=== PATIENT | male | born 1960 | race Caucasian/White ===

== ENCOUNTER 2016-08-05 09:29 | Emergency (ER) ==
[2016-08-05 09:38] VITALS: BP 173/91
[2016-08-05 09:52] LABS: URINE CULTURE PL NEEDED? NO; URINE SOURCE CLEAN CATCH
[2016-08-05 10:05] LABS: BILIRUBIN URINE NEGATIVE (NEGATIVE); BLOOD URINE NEGATIVE (NEGATIVE); CLARITY CLEAR (CLEAR); COLOR YELLOW; GLUCOSE URINE NEGATIVE (NEGATIVE); LEUKOCYTES URINE TRACE (NEGATIVE); NITRITE URINE NEGATIVE (NEGATIVE); PROTEIN URINE TRACE mg/dL (NEGATIVE); SP GRAVITY URINE 1.015; UROBILINOGEN URINE NORMAL
[2016-08-05 10:06] LABS: URINE EPITHELIAL CELLS <10 /HPF (<10); URINE RBC <10 /HPF (<10); URINE WBC <10 /HPF (<10)
[2016-08-05] MEDS ORDERED: NORCO-10 PO ONE (10:09)
[2016-08-05] MEDS ORDERED: DEPO-MEDROL IM ONE (10:10)
[2016-08-05] MEDS ORDERED: NORFLEX IM ONE (10:10)
--- NOTE | 2016-08-05 10:15 | PROVIDER DOCUMENTATION ---
HPI-General Adult - General Chief Complaint: Back Pain Stated Complaint: BACK PAIN Time Seen by Provider: 08/05/16 09:59 Source: patient Allergies/Adverse Reactions: Patient Allergies Allergy/AdvReac Type Severity Reaction Status Date / Time No Known Allergies Allergy Verified 08/05/16 09:37 Home Medications: Omeprazole [Prilosec] 20 mg PO DAILY 06/17/15 - History of Present Illness -Gen Adult Nature of Presenting Problems: Pt. is 55 yom that presents with c/o low back pain that is going down his left buttock and leg. Pt. reports he has an epidural scheduled for Wednesday and yesterday he twisted wrong and his pain became worse. Pt. denies any injury. Location of Pain/Injury: reports: back. denies: head, face, mouth, neck, chest , upper extremity, hand(s), abdomen, pelvis, genitalia, lower extremity, feet, upper body, lower body, generalized Pain Radiation: reports: no radiation Quality of Pain: reports: aching. denies: burning, cramping, dull, fullness, indigestion, pressure, sharp, stabbing, tearing, throbbing, tightness Severity: reports: moderate. denies: mild Onset/Duration: reports: abrupt, 24 hours ago Timing: reports: still present. denies: improving, gone now, resolved prior to arrival, intermittent, constant, changing over time, getting worse Context/Activities at Onset: reports: light activity. denies: recent emotional stress, recent physical stress, recent trauma history, possible bad food, cold exposure, out of country travel Modifying Factors: improves with: nothing Associated Symptoms: reports: back/neck pain. denies: anxiety, arm pain, chest pain, constipation, cough, diaphoresis, diarrhea, dizziness, EENT symptoms, fatigue, fever/chills, genitourinary problems, headaches, heartburn, joint pain , loss of appetite, malaise, muscle aches, sinus congestion/drainage, nausea, rash, seizure, shortness of breath, sensory/motor loss, pain with inspiration, swelling/mass in abdomen, syncope, vomiting, weakness, trouble walking Similar Symptoms Previously?: Yes Recently seen or treated by another doctor?: No Review of Systems - Adult - REVIEW OF SYSTEMS - ADULT Constitutional: reports: see HPI. denies: chills, fever, fatique Eyes: reports: see HPI. denies: discharge, blurred vision, double vision Ears, Nose, Mouth & Throat: reports: see HPI. denies: ear discharge, ear pain, hearing loss, sinus problem, nose pain, loose teeth, mouth/dental pain, throat pain, throat swelling Cardiovascular: reports: see HPI. denies: chest pain, irregular heart rate, orthopnea, syncope Respiratory: reports: see HPI. denies: chronic cough, cough, dyspnea on exertion, pleurisy, shortness of breath, wheezing Gastrointestinal: reports: see HPI. denies: abdominal pain, hematemesis, difficulty swallowing, frequent heartburn, nausea Genitourinary: reports: see HPI. denies: dysuria, discharge, frequent UTI's, hematuria, hesitency, urgency Musculoskeletal: reports: see HPI, back pain, muscle aches. denies: bone pain, joint pain, joint swelling, neck pain Integumentary: reports: see HPI. denies: hives, mole changes, rash, skin thickening Neurological: reports: see HPI. denies: ataxia, dizziness/vertigo, numbness, paresthesia, seizure Psychiatric: reports: see HPI. denies: anxiety, depression, panic attacks, suicidal thoughts Endocrine: reports: see HPI. denies: excessive sweating, heat intolerance, increased hunger Past History - Adult - PAST MEDICAL HISTORY-ADULT Review of Records: reports: Old Records Reviewed, Nursing Assessment Review, Medications Reviewed, Social history reviewed & non-contributory. Gastrointestinal: reports: other (reflux) Physical Exam-General - PHYSICAL EXAM-ADULT Initial Vital Signs Reviewed: Yes - CONSTITUTIONAL General Appearance: alert, moderate distress, obese. negative: thin, anxious, lethargic, slow to respond, obtunded, combative - EYES Eyes: PERRL/EOMI, pink conjunctivae. negative: conjuctival exudate, photophobia , subconjunctival hemorrhage - HEAD, EARS, NOSE, MOUTH & THROAT HENMT: normocephalic/atraumatic, moist mucous membranes. negative: angioedema, frontal tenderness, maxillary tenderness - NECK Neck: non-tender, full range of motion, supple, normal inspection. negative: lymphadenopathy, trachial deviation, thyromegaly - RESPIRATORY Respiratory: lungs clear, normal breath sounds. negative: crackles, rales, rhonchi, stridor, wheezing - CARDIOVASCULAR Cardiovascular: normal peripheral pulses, regular rate, rhythm, no edema, no JVD , no murmur. negative: extra beats, friction rub, irregularly irregular - CHEST (BREASTS) Chest/Breast: deferred - GASTROINTESTINAL (ABDOMEN) Abdominal Exam: normal bowel sounds, non tender, soft. negative: distended, guarding, rigid, rebound, tenderness, hernia, mass - GENITOURINARY Male Genitalia: deferred Rectal Exam: deferred Hemoccult Exam: deferred - LYMPHATIC Lymphatic: no adenopathy. negative: axilla node tender, cervical node tenderness - MUSCULOSKELETAL Back Exam: normal inspection, no CVA tenderness, no vertebral tenderness, decreased range of motion, muscle spasm. negative: ecchymosis, swelling, vertebral tenderness Extremity: normal range of motion, non-tender, normal gait, normal inspection. negative: deformity, erythema, inflammation, swelling, tenderness Peripheral Pulses: radial (R): 2+, radial (L): 2+ - SKIN Integumentary: normal color, normal turgor, warm/dry. negative: cyanosis, diaphoresis, ecchymosis, erythema, jaundice, mottled, pallor, petechiae, purpura , rash, swelling, tenderness - NEUROLOGIC Neurologic: grossly normal, no motor/sensory deficits. negative: abnormal gait , facial droop, focal weakness, motor weakness, sensory deficit - PSYCHIATRIC Psych/Mental Status: normal mood/affect, normal thought content, normal thought process, oriented x 3. negative: anxious, paranoid, tearful Progress - PLAN OF CARE/RESULTS Progress/Plan/Lab Results: Discussed plan of care with patient. Patient agrees with plan and verbalizes understanding. Vital Signs Temp Pulse Resp BP Pulse Ox 08/05/16 09:34 97.2 F L 81 20 173/91 97 No Known Allergies Allergy (Verified 08/05/16 09:37) Omeprazole [Prilosec] 20 mg PO DAILY 06/17/15 Tramadol [Ultram] 50 mg PO Q6H PRN PRN #30 tablet 06/17/15 Laboratory 08/05/16 09:45 Urine Source CLEAN CATCH Urine Color YELLOW Urine Clarity CLEAR Urine pH 7.0 Ur Specific [place] 1.015 Urine Protein TRACE A Urine Ketones NEGATIVE Urine Blood NEGATIVE Urine Nitrite NEGATIVE Urine Bilirubin NEGATIVE Urine Urobilinogen NORMAL Urine Microscopic RBC <10 Urine WBC TRACE A Urine Microscopic WBC <10 Ur Epithelial Cells <10 Urine Glucose NEGATIVE Orders Category Date Time Status UA [URINALYSIS PL W/POSS RFLX CULT] [URINALYSIS] Stat Lab 08/05/16 09:45 Results Hydrocodone/APAP 10 mg/325 mg [[place]-10] Med 08/05/16 10:09 Discontinued 2 each PO NOW ONE Methylprednisolone Acetate [Depo-Medrol] Med 08/05/16 10:10 Discontinued 40 mg IM NOW ONE Orphenadrine [Norflex] Med 08/05/16 10:10 Discontinued 60 mg IM NOW ONE Laboratory Tests 08/05/16 09:45 Urine Source CLEAN CATCH Urine Color YELLOW Urine Clarity CLEAR Urine pH 7.0 Ur Specific [place] 1.015 Urine Protein TRACE A Urine Ketones NEGATIVE Urine Blood NEGATIVE Urine Nitrite NEGATIVE Urine Bilirubin NEGATIVE Urine Urobilinogen NORMAL Urine Microscopic RBC <10 Urine WBC TRACE A Urine Microscopic WBC <10 Ur Epithelial Cells <10 Urine Glucose NEGATIVE Departure - Departure Time of Disposition Order: 10:15 DIAGNOSIS: Lumbago with sciatica, left side Qualifiers: Chronicity: acute Back pain laterality: left Qualified Code(s): M54.42 - Lumbago with sciatica, left side Disposition: HOME 01 Certified Medical Emergency: Emergent Condition: Stable Additional Instructions: Follow up with primary care physician Take medications as directed Return to ED for any concerns or worsening of symptoms ED Follow Up Instructions: You have been treated by a care provider in the Emergency Department. These instructions are being provided to you so you can have an understanding of how to care for yourself upon discharge. Upon discharge from the Emergency Department, you are responsible for making arrangements for follow-up care by a physician of your choice. Take all prescribed medications as directed. Return to the Emergency Department immediately for any new or worsening symptoms. You may call the Physician Referral phone number at [phone] to obtain a list of Physicians who are taking new patients. Prescriptions: Cyclobenzaprine [Flexeril] 10 mg PO TID #20 tablet Methylprednisolone [Medrol Dosepak] 4 mg PO DIRECTED #1 package Attestation - Physician/ Mid-level Attestation Patient care was provided by Mid-level provider (COTTON CLASSER/PA):: Yes Mid-level provider:: Parish Sears Mid-level documentation review:: The Mid-level provider documentation, treatment plan and medical decision making was reviewed by the physician who agrees with all treatment and medical decision making by the MLP.
== END 2016-08-05 11:07 | disposition home or self-care (01) ==
LOC: P.ED 09:29
DX: M54.42 Lumbago with sciatica, left side (principal); M79.1 Myalgia; M79.606 Pain in leg, unspecified; K21.9 Gastro-esophageal reflux disease without esophagitis; E66.9 Obesity, unspecified; Z68.36 Body mass index [BMI] 36.0-36.9, adult; Z79.899 Other long term (current) drug therapy
CPT/HCPCS: 81001; 96372; J1030; J2360